=== PATIENT | female | born 1960 | race Asian ===

== ENCOUNTER 2017-08-13 10:36 | Emergency (ER) | payer SELFPAY ==
[2017-08-13 10:46] VITALS: BP 141/79
--- NOTE | 2017-08-13 10:59 | UC ---
Minor Trauma HPI - HPI Summary HPI Summary: 56 yo female slipped and fell at work Landed on buttock and left elbow buttock pain >>>left elbow pain no neck or back pain - History of Current Complaint Chief Complaint: UCBackPain Stated Complaint: ELBOW/HIP INJURY Time Seen by Provider: 08/13/17 10:53 Hx Obtained From: Patient Onset/Duration: Sudden Onset Onset Of Pain: Immediate Severity Initially: Severe Severity Currently: Severe Pain Intensity: 8 - she declines pain med Pain Scale Used: 0-10 Numeric Mechanism Of Injury: Fall From A Standing Position Aggravating Factor(s): Other: - sitting Alleviating Factor(s): Other: - standing Related History: Positive: Occupational Injury - Allergies/Home Medications Allergies/Adverse Reactions: Allergies Allergy/AdvReac Type Severity Reaction Status Date / Time No Known Allergies Allergy Verified 08/13/17 10:46 Home Medications: Home Medications Acarbose [Precose] 1 tab PO DAILY 08/13/17 [History Confirmed 08/13/17] PMH/Surg Hx/FS Hx/Imm Hx Previously Healthy: Yes Endocrine History: Diabetes Cardiovascular History: Hypertension - Surgical History Surgical History: Yes Surgery Procedure, Year, and Place: [facility] FOR CATARACT, RIGHT HAND FINGER SURGERY - Family History Known Family History: Positive: Cardiac Disease, Hypertension, Diabetes, Other - cva father - Social History Alcohol Use: None Substance Use Type: None Smoking Status (MU): Never Smoked Tobacco - Immunization History Vaccination Up to Date: Yes Review of Systems Constitutional: Negative Skin: Negative Eyes: Negative ENT: Negative Respiratory: Negative Cardiovascular: Negative Gastrointestinal: Negative Genitourinary: Negative Motor: Negative Neurovascular: Negative Musculoskeletal: Arthralgia Neurological: Negative Psychological: Negative Is Patient Immunocompromised?: No All Other Systems Reviewed And Are Negative: Yes Physical Exam Triage Information Reviewed: Yes Appearance: Well-Appearing, No Pain Distress, Well-Nourished Vital Signs: Initial Vital Signs Temp 98.1 F 08/13/17 10:40 Pulse 75 08/13/17 10:40 Resp 16 08/13/17 10:40 BP 141/79 08/13/17 10:40 Pulse Ox 100 08/13/17 10:40 Vital Signs Reviewed: Yes Eyes: Positive: Conjunctiva Clear ENT: Positive: Hearing grossly normal, Uvula midline. Negative: Nasal congestion, Nasal drainage, Tonsillar swelling, Tonsillar exudate, Hoarse voice , Dental tenderness, Sinus tenderness Neck: Positive: Supple, Nontender, No Lymphadenopathy Respiratory: Positive: Lungs clear, Normal breath sounds Cardiovascular: Positive: RRR Musculoskeletal: Positive: ROM Intact, No Edema, Other: - able to fully eltend elbow/miminal olecranon tenderness, pt declines elbow xr Neurological: Positive: Alert Psychological Exam: Normal Skin Exam: Normal Minor Trauma Course/Dx - Differential Dx/Diagnosis Provider Diagnoses: coccyx contusion/left elbow contusion Discharge - Discharge Plan Condition: Stable Disposition: HOME Prescriptions: Ibuprofen TAB* [Motrin TAB*] 600 mg PO Q6H PRN #40 tab PRN Reason: Pain Patient Education Materials: Coccyx Injury (ED), Contusion in Adults (ED) Forms: *Work Release Referrals: Omero Barth MD [Primary Care Provider] - Images Front/Back of Body, Lg ([place]): 1 - tender
--- NOTE | 2017-08-13 11:34 | RAD ---
INDICATION: Injury COMPARISON: None AP and lateral imaging demonstrates no fracture or acute bony lesion. The SI joints and symphysis appear intact. The soft tissues are normal IMPRESSION: NEGATIVE EXAMINATION.
== END 2017-08-13 12:07 | disposition home or self-care (01) ==
LOC: UCEAST 10:36
DX: S50.02XA Contusion of left elbow, initial encounter (principal); E11.9 Type 2 diabetes mellitus without complications; I10 Essential (primary) hypertension; S30.0XXA Contusion of lower back and pelvis, initial encounter; W19.XXXA Unspecified fall, initial encounter; Y92.9 Unspecified place or not applicable; Y99.0 Civilian activity done for income or pay
CPT/HCPCS: 72220; 99212; G0463